=== PATIENT | male | born 1965 | race Caucasian/White ===

== ENCOUNTER 2017-07-26 17:39 | Emergency (ER) | payer SELFPAY ==
[~2017-07-26] VITALS: Ht 180.3 cm; Wt 87.5 kg
--- NOTE | 2017-07-26 18:35 | ED NEURO DEFICIT/STROKE ---
History of Present Illness General Chief Complaint: General Adult Stated Complaint: DISCHARGED FROM NOVELTY YESTERDAY, COMPLICATIONS Source: patient, family Exam Limitations: no limitations Vital Signs & Intake/Output Vital Signs & Intake/Output Vital Signs Date Time Temp Pulse Resp B/P B/P Pulse O2 O2 Flow FiO2 Mean Ox Delivery Rate 07/26 1937 97 Room Air 07/26 1918 97.9 95 18 143/91 97 Room Air ED Intake and Output 07/27 0000 07/26 1200 Intake Total Output Total Balance Patient 193 lb Weight Allergies Coded Allergies: No Known Allergies (07/26/17) Reconcile Medications Albuterol Sulfate (Proair Hfa) 90 MCG HFA.AER.AD 2 PUF INH Q4-6 PRN PRN COUGH (Reported) Methylprednisolone. (Medrol) 4 MG TAB.DS.PK 1 DP PO AD BELLS PALSY 6 on day 1 then reduce by one tablet daily until gone Pantoprazole Sodium (Protonix) 40 MG TABLET.DR 1 TAB PO DAILY BOWEL HEALTH ( Reported) Triage Note: PT STATES THAT HE WAS DISCHARGED FROM [facility] WHERE HE WAS ADMITTED FOR MID STERNAL ,UPPER GASTRIC PAIN, STATES THAT HE HAD ALL TYPES OIF TEST/SCANS/LABS/ENDOSCOPY, WAS TOLD HE HAD INFLAMMED ESOPHAGUS AND STOMACH. PT STATES THAT LAST PM HE NOTED THAT WHEN HE WENT TO DRINK HE WAS HAVING A HARD TIME DRINKING DUE TO R SIDE FACIAL DROOP AND R EYE DROOP AND TWITCHING IN HIS R CHEEK. SPEECH CLEAR , HAND GRASP EQUAL, PT AMBULATED TO TRIAGE WITH A CANE, STATES THAT HE STARTED USING TODAY DUE TO BILATERAL LEGS FEEL WEAK Triage Nurses Notes Reviewed? yes Onset: Gradual Duration: hour(s): Timing: recent history Severity: moderate New Weakness: right facial Vision Problem? Yes Glaucoma? No HPI: 51yo male presents to ED complaining of right facial droop beginning gradually last night. Patient states symptoms started with his mouth and gradually progressed to his eye and eyebrow. Patient is having difficulty closing his eye. He also reports right ear "clogged" feeling. Patient states that his vision is blurry in the right eye. Patient reports he was recently admitted at [facility] for severe epigastric pain for which he required 3 day admission. Patient reports he had several tests done including imaging however no results to explain his pain. He states his pain is currently well managed with Tramadol. Patient also notes paresthesias and pains to bilateral feet and weakness of bilateral legs x 3 weeks. He has a hx of PNA and influenza dx in the past few weeks, URI symptoms have resolved. The patient denies fall or head trauma, fevers, chills, chest pain, dyspnea. (Manju Haines) Past History Travel History Traveled to [place] past 21 day No Medical History Any Pertinent Medical History? see below for history Neurological: NONE EENT: NONE Cardiovascular: NONE Respiratory: NONE Gastrointestinal: NONE Hepatic: NONE Renal: NONE Musculoskeletal: chronic back pain Psychiatric: NONE Endocrine: NONE Blood Disorders: NONE Cancer(s): NONE Surgical History Surgical History: non-contributory Psychosocial History What is your primary language Croatian Tobacco Use: Quit >30 days ago ETOH Use: denies use Illicit Drug Use: marijuana Family History Hx Contributory? No (Manju Haines) Review of Systems Review of Systems Constitutional: Reports: no symptoms. EENTM: Reports: see HPI. Respiratory: Reports: see HPI. Cardiovascular: Reports: no symptoms. GI: Reports: see HPI. Genitourinary: Reports: no symptoms. Musculoskeletal: Reports: no symptoms. Skin: Reports: no symptoms. Neurological/Psychological: Reports: see HPI. Hematologic/Endocrine: Reports: no symptoms. Immunologic/Allergic: Reports: no symptoms. All Other Systems: Reviewed and Negative (Manju Haines) Physical Exam Physical Exam General Appearance: well developed/nourished, no apparent distress, alert, awake Head: atraumatic, normal appearance Eyes: Left: PERRL. Right: abnormal pupil (minimally reactive). Bilateral: normal appearance, EOMI. Ears, Nose, Throat: normal ENT inspection, moist mucous membrane, hearing grossly normal, Tympanic normal, pharynx normal, right facial droop involving mouth, eyebrow/forehead wrinkles Neck: normal inspection, supple, full range of motion Respiratory: normal breath sounds, no respiratory distress, lungs clear Cardiovascular: regular rate/rhythm Gastrointestinal: normal bowel sounds, soft, non-tender, no organomegaly Back: normal inspection, normal range of motion Extremities: normal range of motion Psychiatric: awake, alert, oriented x 3 Cranial Nerves: normal hearing, normal speech, right facial droop/paralysis, unequal eyebrows/forehead wrinkle, Uvula midline, sensation intact Coordination/Gait: normal finger to nose, normal gait Skin: intact, normal color, warm/dry Core Measures CVA/TIA Diagnosis: No Sepsis Present: No Sepsis Focused Exam Completed? No (Mariposa MOSS,Manju Oshea) Progress Differential Diagnosis: Rossi's Palsy, electrolyte imbalance, encephalitis, intracranial Hem., intracranial mass/tumor, stroke, subarachnoid Hem. Plan of Care: Laboratory Tests 07/26/17 1912: Anion Gap 11, Estimated GFR > 60, BUN/Creatinine Ratio 20.0, Glucose 160 H, Calcium 9.2, Total Bilirubin 0.3, AST 12 L, ALT 34, Alkaline Phosphatase 86, Total Protein 6.2 L, Albumin 3.9, Globulin 2.3, Albumin/Globulin Ratio 1.7, CBC w Diff NO MAN DIFF REQ, RBC 5.20, MCV 86.6, MCH 28.7, MCHC 33.2, RDW 13.9, MPV 7.1 L, Gran % 72.8, Lymphocytes % 18.2 L, Monocytes % 7.4, Eosinophils % 1.2, Basophils % 0.4, Absolute Granulocytes 10.3 H, Absolute Lymphocytes 2.6, Absolute Monocytes 1.1 H, Absolute Eosinophils 0.2, Absolute Basophils 0.1, Lyme Disease Antibody Pending CT scan without acute abnormality. Patient's neurologic deficit is more likely related to Rossi's palsy given right facial paralysis involving eyebrow and forehead. Patient's right-sided pupil irregularity does not correlate with Rossi 's palsy. The patient has multiple systemic symptoms and needs further evaluation. Patient likely requires rheumatology for assessment of possible autoimmune systemic condition. Blood work and the emergency Department without acute abnormality. The patient was started on steroids given acute Rossi's palsy. The patient agrees with the plan of care. His vital signs are stable, he is in no acute distress. The patient was discussed with Dr. Alvarez who agrees with this plan. Diagnostic Imaging: Viewed by Me: CT Scan. Discussed w/RAD: CT Scan. Radiology Impression: PATIENT: ROGELIO WRAY PRESENT AGE: 51 PATIENT ACCOUNT NO: [id number] : 65 LOCATION: [facility] ORDERING PHYSICIAN: Manju MOSS SERVICE DATE: 07/26/17 EXAM TYPE: CAT - CT HEAD WO IV CONTRAST EXAMINATION: CT HEAD WITHOUT CONTRAST CLINICAL INFORMATION: Right-sided neural deficit COMPARISON: None TECHNIQUE: Contiguous axial imaging was performed from the skull base to vertex without intravenous administration of contrast. DLP: 615.52 mGy-cm FINDINGS: There is no evidence of acute intracranial hemorrhage or territorial infarction. No abnormal mass effect or midline shift is seen. Renteria to white matter differentiation is well preserved. No extra-axial fluid collections are identified. The ventricles are normal in size. There is no abnormal attenuation within the brain parenchyma. The osseous structures and soft tissues are normal. The mastoid air cells are well aerated. Fluid and air-fluid levels seen in bilateral maxillary sinuses. Mucosal thickening of bilateral ethmoid air cells and frontal sinuses also noted. Nasal septal deviation towards left side is present. There is a 6 mm calcific density in the anterior right ethmoid air cell. IMPRESSION: No acute intracranial hemorrhage or sign of acute territorial ischemia. Acute pansinusitis. DICTATED BY: Adriane Dang MD DATE/TIME DICTATED:07/26/172020 ELECTRICAL AND RADIO MOCK UP MECHANIC:ADRIAN DATE/TIME TRANSCRIBED:07/26/172020 CONFIDENTIAL, DO NOT COPY WITHOUT APPROPRIATE AUTHORIZATION. <Electronically signed in Other Vendor System> SIGNED BY: Adriane Dang MD 07/26/172027 Initial ED EKG: none (Mariposa MOSS,Manju Oseha) Departure Departure Disposition: HOME OR SELF CARE Condition: Stable Clinical Impression Primary Impression: Rossi's palsy Secondary Impressions: Paresthesias Referrals: Autumn MCGEE,Pepe Reddy MD,Lance Samaniego (PCP/Family) Additional Instructions: Keep your scheduled appointment with her primary care doctor for tomorrow. You were given a referral for a telesales agent and a neurologist to follow up with. You may also obtain referrals for the specialists 3 your primary care doctor. We will call in 2 days if the results of your Lyme screening was abnormal. Return with any worsening symptoms or concerns. Please note that there might be incidental findings in your evaluation that are unrelated to the current emergency department visit. Please notify your primary care doctor about this emergency department visit in order to obtain and review all of the testing performed so that these incidental findings can be monitored as needed. If you had an x-ray performed, please understand that some fractures may not be seen on the initial set of x-rays. If your symptoms persist you might need a repeat set of x-rays to check for such a fracture. If you had a laceration evaluated, please understand that foreign bodies such as glass or wood may not be visible to the naked eye or on plain x-rays. If the wound becomes red, swollen, increasingly more painful or if there is any drainage from the wound, please have it reevaluated by a physician for the possibility of a retained foreign body. If you're unable to follow up as outlined in the discharge instructions please return to the emergency department. Thank you for choosing the [facility] Emergency Department for your care. It was a pleasure to serve you today. Departure Forms: Customer Survey General Discharge Information Prescriptions: Current Visit Scripts Methylprednisolone. (Medrol) 1 DP PO AD #1 DP 6 on day 1 then reduce by one tablet daily until gone (Mariposa MOSS,Manju Oshea) PA/SPOOLING SUPERVISOR Co-Sign Statement Statement: ED Attending supervision documentation- [] I saw and evaluated the patient. I have also reviewed all the pertinent lab results and diagnostic results. I agree with the findings and the plan of care as documented in the PA's/SPOOLING SUPERVISOR's documentation. [X] I have reviewed the ED Record and agree with the PA's/SPOOLING SUPERVISOR's documentation. [] Additions or exceptions (if any) to the PAs/SPOOLING SUPERVISOR's note and plan are summarized below: [] (Kim MCGEE,Fidel Puri)
[2017-07-26 19:19] VITALS: BP 143/91
[2017-07-26 19:20] LABS: ABSOLUTE BASOPHIL COUNT 0.1 /CUMM (0.0-0.2); ABSOLUTE EOSINOPHIL COUNT 0.2 /CUMM (0.0-0.7); ABSOLUTE GRANULOCYTE CT 10.3 /CUMM (1.4-6.5); ABSOLUTE LYMPH COUNT 2.6 /CUMM (1.2-3.4); ABSOLUTE MONOCYTE COUNT 1.1 /CUMM (0.10-0.60); BASOPHIL % 0.4 % (0.0-2.0); EOSINOPHIL % 1.2 % (0-5); GRANULOCYTE % 72.8 % (42.2-75.2); MEAN CORPUSCULAR HGB 28.7 PG (27.0-31.0); MEAN CORPUSCULAR HGB CONC 33.2 G/DL (33.0-37.0); MEAN CORPUSCULAR VOLUME 86.6 FL (80.0-94.0); MEAN PLATELET VOLUME 7.1 FL (7.4-10.4); PLATELET COUNT 336 /CUMM (130-400); RBC DISTRIBUTION WIDTH 13.9 % (11.5-14.5); WHITE BLOOD CELL COUNT 14.1 /CUMM (4.8-10.8)
[2017-07-26] MEDS ORDERED: PROTONIX40 M3 PO (19:55)
[2017-07-26] MEDS ORDERED: PROAIR HFA8.5 GM INH (19:56)
--- NOTE | 2017-07-26 20:28 | CT SCAN REPORT ---
EXAMINATION: CT HEAD WITHOUT CONTRAST CLINICAL INFORMATION: Right-sided neural deficit COMPARISON: None TECHNIQUE: Contiguous axial imaging was performed from the skull base to vertex without intravenous administration of contrast. DLP: 615.52 mGy-cm FINDINGS: There is no evidence of acute intracranial hemorrhage or territorial infarction. No abnormal mass effect or midline shift is seen. Renteria to white matter differentiation is well preserved. No extra-axial fluid collections are identified. The ventricles are normal in size. There is no abnormal attenuation within the brain parenchyma. The osseous structures and soft tissues are normal. The mastoid air cells are well aerated. Fluid and air-fluid levels seen in bilateral maxillary sinuses. Mucosal thickening of bilateral ethmoid air cells and frontal sinuses also noted. Nasal septal deviation towards left side is present. There is a 6 mm calcific density in the anterior right ethmoid air cell. IMPRESSION: No acute intracranial hemorrhage or sign of acute territorial ischemia. Acute pansinusitis.
[2017-07-26] MEDS ORDERED: MEDROL4 M2 PO (21:05)
== END 2017-07-26 21:19 ==
LOC: ERH 17:39
PROVIDERS: Physician Assistant
DX: G51.0 Bell's palsy (principal); R20.2 Paresthesia of skin
CPT/HCPCS: 86618